=== PATIENT | female | born 1985 | race Caucasian/White ===

== ENCOUNTER 2018-06-17 18:36 | Inpatient (IN) | payer BC ==
[~2018-06-17] VITALS: Ht 165.1 cm; Wt 84.4 kg
--- OUTSIDE RECORDS SUMMARY | 2018-06-17 18:38 | XMS REPORT | Continuity of Care Document ---
Author Author [facility] Interface Address Unknown Phone Unavailable Problems Problem Status Onset Date Classification Date Reported Comments Source Exposure to streptococcal pharyngitis 12/06/2017 Diagnosis 12/06/2017 [facility] Body mass index 25-29 - overweight 12/06/2017 Diagnosis 12/06/2017 [facility] Influenza-like symptoms 12/06/2017 Diagnosis 12/06/2017 [facility] Acute pharyngitis 12/06/2017 Diagnosis 12/06/2017 [facility] Body Mass Index 25-29 - Overweight 12/05/2017 Problem 03/19/2018 [facility] Anxiety 12/05/2017 Problem 03/19/2018 [facility] Depressive Disorder 12/05/2017 Problem 03/19/2018 [facility] Acute Pharyngitis 12/05/2017 Problem 03/19/2018 [facility] Allergic Rhinitis 12/05/2017 Problem 03/19/2018 [facility] Influenza-like Symptoms 12/05/2017 Problem 03/19/2018 [facility] Exposure to Streptococcus 06/28/2016 Diagnosis 06/28/2016 [facility] Serous otitis media 05/30/2016 Diagnosis 06/28/2016 [facility] Cerebral thrombosis without mention of cerebral infarction Active Problem 08/15/2013 [facility] Medications Medication Details Route Status Patient Instructions Ordering Provider Order Date Source Amoxicillin 875 MG Oral Tablet amoxicillin 875 mg tablet Take 1 tablet every 12 hours by oral route for 10 days. Active [facility] Estradiol 1 MG Oral Tablet estradiol 1 mg tablet Active [facility] levocetirizine dihydrochloride 5 MG Oral Tablet levocetirizine 5 mg tablet Active [facility] montelukast 10 MG Oral Tablet montelukast 10 mg tablet Active [facility] cefdinir 300 MG Oral Capsule cefdinir 300 mg capsule Take 1 capsule every 12 hours by oral route as directed for 10 days. Active [facility] Lidocaine Hydrochloride 20 MG/ML Mucous Membrane Topical Solution Lidocaine Viscous 2 % mucosal solution Take 10 mL every 3 hours by oral route as needed. Active [facility] Ativan lorazepam Active [facility] Zoloft Zoloft Active [facility] Azithromycin 250 MG Oral Tablet azithromycin 250 mg tablet Active [facility] benzonatate 100 MG Oral Capsule benzonatate 100 mg capsule Active [facility] Cefuroxime 500 MG Oral Tablet cefuroxime axetil 500 mg tablet Active [facility] Ciprofloxacin 500 MG Oral Tablet ciprofloxacin 500 mg tablet Active [facility] Clindamycin 300 MG Oral Capsule clindamycin 300 mg capsule Active [facility] 24 HR Diclofenac Sodium 100 MG Extended Release Oral Tablet diclofenac ER 100 mg tablet,extended release 24 hr Active [facility] Fluticasone propionate 0.05 MG/ACTUAT Metered Dose Nasal [place] fluticasone 50 mcg/actuation nasal spray,suspension [place] 1 spray twice a day by intranasal route. Active [facility] Acetaminophen 325 MG / Hydrocodone Bitartrate 5 MG Oral Tablet hydrocodone 5 mg-acetaminophen 325 mg tablet Active [facility] Nortriptyline 10 MG Oral Capsule nortriptyline 10 mg capsule Active [facility] Omeprazole 40 MG Delayed Release Oral Capsule omeprazole 40 mg capsule,delayed release Active [facility] Prednisone 10 MG Oral Tablet prednisone 10 mg tablet Active [facility] Suprep Bowel Prep Kit 17.5 gram-3.13 gram-1.6 gram oral solution Suprep Bowel Prep Kit 17.5 gram-3.13 gram-1.6 gram oral solution Active [facility] Trazodone Hydrochloride 50 MG Oral Tablet trazodone 50 mg tablet Active [facility] Hydrocodone-Acetaminophen 1-2 tablet Orally Active 5-325 MG Orally every 4-6 hrs prn [facility] Allergies, Adverse Reactions, Alerts Substance Category Reaction Severity Reaction type Status Date Reported Comments Source Flagyl Myalgias (muscle pain) Allergy to substance 05/30/2016 [facility] Immunizations Immunization Date Given Site Status Last Updated Comments Source Tdap 02/07/2015 completed [facility] Results Order Name Results Value Reference Range Date Interpretation Comments Source Influenza A negative 12/06/2017 [facility] Influenza B negative 12/06/2017 [facility] RESULT negative 12/05/2017 [facility] SWAB LOCATION Left and Right tonsillar pillars 12/05/2017 [facility] RESULT negative 06/28/2016 [facility] SWAB LOCATION Left and Right tonsillar pillars 06/28/2016 [facility] RESULT negative 06/28/2016 [facility] SWAB LOCATION Left and Right tonsillar pillars 06/28/2016 [facility] Influenza A negative 06/28/2016 [facility] Influenza B negative 06/28/2016 [facility] RESULT negative 05/30/2016 [facility] SWAB LOCATION Left and Right tonsillar pillars 05/30/2016 [facility] Influenza A negative 05/30/2016 [facility] Influenza B negative 05/30/2016 [facility] Vital Signs Vital Sign Value Date Comments Source Diastolic (mm Hg) 60 12/05/2017 [facility] Height 66 12/05/2017 [facility] Systolic (mm Hg) 110 12/05/2017 [facility] Weight 165 12/05/2017 [facility] Diastolic (mm Hg) 76 06/28/2016 [facility] Height 66 06/28/2016 [facility] Systolic (mm Hg) 108 06/28/2016 [facility] Weight 170 06/28/2016 [facility] Diastolic (mm Hg) 80 05/30/2016 [facility] Height 66 05/30/2016 [facility] Systolic (mm Hg) 120 05/30/2016 [facility] Weight 175 05/30/2016 [facility] Encounters Location Location Details Encounter Type Encounter Number Reason For Visit Attending Provider ADM Date DC Date Status Source [facility] Lab results [id number] 06/28/2013 06/28/2013 [facility] Lab results [id number] 06/28/2013 06/28/2013 [facility] Lab results [id number] 06/28/2013 06/28/2013 [facility] Lab results [id number] 06/28/2013 06/28/2013 [facility] MRI scheduling [id number] 07/06/2013 07/06/2013 [facility] MRI scheduling [id number] 07/06/2013 07/06/2013 [facility] MRI scheduling [id number] 07/06/2013 07/06/2013 [facility] MRI scheduling [id number] 07/06/2013 07/06/2013 [facility] MRI/MRV [id number] 07/10/2013 07/10/2013 [facility] MRI/MRV [id number] 07/10/2013 07/10/2013 [facility] MRI/MRV [id number] 07/10/2013 07/10/2013 [facility] MRI/MRV [id number] 07/10/2013 07/10/2013 [facility] refill [id number] 07/11/2013 07/11/2013 [facility] refill [id number] 07/11/2013 07/11/2013 [facility] refill [id number] 07/11/2013 07/11/2013 [facility] refill [id number] 07/11/2013 07/11/2013 [facility] [place] - [facility] - [id number] Diaz, PAINTER AND BODY MECHANIC APPRENTICE-C: [address] [place] [address], Ph. [phone] [id number] Augustina Diaz 05/30/2016 [facility] [place] [facility] - [id number] Diaz PAINTER AND BODY MECHANIC APPRENTICE-C: [address] [facility], [place] [address], Ph. [phone] [id number] Augustina Diaz 05/30/2016 [facility] [place] [facility] - [id number] Alex Milian, DIGITAL PRODUCT SPECIALIST-C: [address] [place] [address], Ph. [id number] Alex Milian 06/28/2016 [facility] [place] [facility] - [id number] Fartun Gutierrez, DIGITAL PRODUCT SPECIALIST-C: [address] [place] [address], Ph. [id number] Fartun Gutierrez 12/05/2017 [facility] [place] [facility] - [id number] Terese Horton, DIGITAL PRODUCT SPECIALIST-C: [address] [place] [address], Ph. [id number] Terese Horton 03/19/2018 [facility] Procedures Procedure Code Date Perfomer Comments Source Hysterectomy [facility]
--- OUTSIDE RECORDS SUMMARY | 2018-06-17 18:38 | XMS REPORT | Encounter Summary ---
Author Organization Unknown Address [address] [place] [address] Phone [phone] Reason for Visit Medical Complaint Instructions 1. Exposure to Streptococcus rapid strep group A, throat amoxicillin 875 mg tablet Discussion Note: None recorded. Patient educational handouts: No information available. Plan of Care Patient Instructions take rx as directed. otc tylenol or ibuprofen prn. change toothbrush after 3 days. do not share or eat after one another. follow up pcp Reminders Provider Appointments None recorded. Lab Rapid Strep Group a, Throat 06/28/2016 [facility] Referral None recorded. Procedures None recorded. Surgeries None recorded. Imaging None recorded. Medications Name Start Date amoxicillin 875 mg tablet Take 1 tablet every 12 hours by oral route for 10 days. estradiol 1 mg tablet levocetirizine 5 mg tablet montelukast 10 mg tablet Medications Administered None recorded. Vitals Height Weight BMI Blood Pressure 5 ft 6 in 170 lbs 27.4 108/76 Lab Results Date Name Specimen Result Interpretation Description Value Range Status Address Rapid Strep Group a, Throat Result negative [facility]: [address] [place] [address] Swab Location Left and Right tonsillar pillars [facility]: [address] [place] [address] Rapid Strep Group a, Throat Result negative [facility]: [address] [place] [address] Swab Location Left and Right tonsillar pillars [facility]: [address] [place] [address] Rapid Flu (A+B) Influenza a negative [facility]: [address] [place] [address] Influenza B negative [facility]: [address] [place] [address] Allergies Code Code System Name Reaction Severity Onset 20270714 RxNorm Flagyl Myalgias (Muscle Pain) Problems None recorded. Procedures Date Name Performed by Hysterectomy Information not available Vaccine List None recorded. Social History Smoking Status Never Smoker Past Encounters 06/28/2016 Exposure to Streptococcus Alex Milian, JOHN-C: [address] [place] [address], Ph. 05/30/2016 Influenza-like Symptoms; Acute Pharyngitis; Serous Otitis Media Augustina Diaz MAT REPAIRER-C: [address] [facility], [place] [address], Ph. [phone] History of Present Illness Throat-Oral Complaint Reported By: Patient HPI: Location: throat. Quality: sore throat. Severity: mild, moderate. Duration: 3 days. Onset/Timing: gradual. Context: no sick contacts, no foreign travel, non-smoker. Modifying factors: OTC medication. Associated Symptoms: no fever, no headache, no body aches, no sputum production, no shortness of breath, no wheezing, no change in number of pillows needed to sleep at night, no sweats, no significant weight gain, no significant weight loss, no morning cough, no vomiting, no diarrhea, no rash, no nausea, sore throat Review of Systems:ROS as noted in the HPI Review of Systems Basic Reported By: Patient Physical Exam Adult Basic, Adult Female Complete Reported By: Patient Constitutional: General Appearance: healthy-appearing, well-nourished, well-developed. Level of Distress: NAD. Ambulation: ambulating normally Psychiatric: Mental Status: active and alert Kiu-Xqjt-Xcxrh-Throat: Lips, Teeth, and Gums: no mouth or lip ulcers. Oropharynx: moist mucous membranes, no erythema, no exudates, tonsils not enlarged Neck: Neck: trachea midline. Lymph Nodes: no cervical LAD Lungs: Respiratory effort: no dyspnea, no tachypnea, no use of accessory muscles, no intercostal retractions. Auscultation: breath sounds normal Cardiovascular: Heart Auscultation: RRR, no murmurs
--- OUTSIDE RECORDS SUMMARY | 2018-06-17 18:39 | XMS REPORT | Encounter Summary ---
Author Organization Unknown Address [address] [place] [address] Phone [phone] Care Team Providers Care Sizer Hand Name Role Phone Jun Ansari MD 3 [phone] Reason for Visit Medical Complaint Instructions 1. Acute pharyngitis sore throat: care instructions Lidocaine Viscous 2 % mucosal solution cefdinir 300 mg capsule rapid strep group A, throat culture, respiratory 2. Exposure to streptococcal pharyngitis 3. Influenza-like symptoms rapid flu (A+B) 4. Body mass index 25-29 - overweight body mass index: care instructions Discussion Note Pt is in NAD; Verbalizes understanding of all instructions with no questions at this time. Plan of Care Patient Instructions Take flonase over the counter as per package insert for congestion. [place] one spray in each nostril twice a day. Take a warm, steamy shower, blow your nose thereafter, and spray in each nostril. Tilt your head up for about 10 seconds and breath through your mouth. Do not sniff or snort the medication in or else the medication will go to your throat and not be absorbed appropriately. Gargle and spit viscous lidocaine as needed for sore throat as directed. Alternate with Ibuprofen and acetaminophen every 4-6 hrs as needed for pain/fever/headache. Proper hydration and rest. Take antibiotics with food and recommend start a probiotic to avoid GI discomfort. Do not share any utensils/cups, no kissing and change toothbrush after 24-48 hrs of antibiotic use. Take medications as prescribed. Follow up with your PCP within 2-3 days if symptoms worsen as discussed. Recommend follow a low sodium/fat/carb diet and exercise 30-45 mins/d 3-4 days a week once symptoms resolve. Reminders Provider Appointments None recorded. Lab Rapid Strep Group a, Throat 12/05/2017 [facility] Rapid Flu (A+B) 12/05/2017 [facility] Culture, Respiratory 12/05/2017 [facility] Referral None recorded. Procedures None recorded. Surgeries None recorded. Imaging None recorded. Medications Name Start Date cefdinir 300 mg capsule Take 1 capsule every 12 hours by oral route as directed for 10 days. Lidocaine Viscous 2 % mucosal solution Take 10 mL every 3 hours by oral route as needed. lorazepam montelukast 10 mg tablet Zoloft Medications Administered None recorded. Vitals Height Weight BMI Blood Pressure 5 ft 6 in 165 lbs 26.6 kg/m2 110/60 mm[Hg] Lab Results Date Name Specimen Result Interpretation Description Value Range Status Address 12/05/2017 Rapid Flu (A+B) Influenza a negative [facility]: [address] [place] [address] Influenza B negative [facility]: [address] [place] [address] Rapid Strep Group a, Throat Result negative [facility]: [address] [place] [address] Swab Location Left and Right tonsillar pillars [facility]: [address] [place] [address] Allergies Code Code System Name Reaction Severity Status Onset 20270714 RxNorm Flagyl Myalgias (Muscle Pain) Active Problems Name Status Onset Date Source Body Mass Index 25-29 - Overweight Active 12/05/2017 Anxiety Active 12/05/2017 Depressive Disorder Active 12/05/2017 Acute Pharyngitis Active 12/05/2017 Allergic Rhinitis Active 12/05/2017 Influenza-like Symptoms Active 12/05/2017 Procedures Date Name Performed by Hysterectomy Information not available Vaccine List Vaccine Type Tdap 02/07/2015 Social History Smoking Status Never Smoker Past Encounters 12/05/2017 Acute Pharyngitis; Exposure to Streptococcal Pharyngitis; Influenza-like Symptoms; Body Mass Index 25-29 - Overweight Fartun Gutierrez, CVICU RN-C: [address] [place] [address], Ph. History of Present Illness Throat-Oral Complaint Reported By: Patient HPI: Location: throat. Quality: sore throat. Severity: moderate, pain level 6/10. Duration: ; nasal congestion, sinus pressure, sore throat and OSMAN x 3 days and fever x 1 day. Onset/Timing: sudden. Context: no foreign travel, non-smoker, sick contact. Modifying factors: ; OTC cold and flu meds with no improvement. Associated Symptoms: no fever, no body aches, no sputum production, no shortness of breath, no wheezing, no change in number of pillows needed to sleep at night, no sweats, no significant weight gain, no significant weight loss, no morning cough, no vomiting, no diarrhea, no rash, no nausea, fever, headache, sore throat; nasal congestion and sinus pressure [id number]-Wzv Reported By: Patient HPI: Quality: cannot identify. Duration: constant; 32 YOF pt with c/o nasal congestion, sinus pressure, sore throat and OSMAN x 3 days and fever x 1 day. Severity: subjective temperature. Context: no tick/insect bites, no recent travel, no new medications, ill contacts. Associated Symptoms: no fever/chills, no muscle aches, no rash, no lethargy, headache, nasal passage blockage (stuffiness); sinus pressure, sore throat and fever. Modifying Factors nothing gives relief Review of Systems:ROS as noted in the HPI Review of Systems Basic Reported By: Patient Physical Exam Adult Basic, Adult Female Complete Reported By: Patient Constitutional: General Appearance: healthy-appearing, well-nourished, well-developed, overweight. Level of Distress: NAD. Ambulation: ambulating normally Psychiatric: Mental Status: active and alert. Orientation: to time, to place, to person Eyes: Lids and Conjunctivae: non-injected, no discharge, no pallor. Corneas: grossly intact. Lens: clear Hnf-Jvpp-Vgkpz-Throat: Ears: no lesions on external ear, no outer ear tenderness, EACs clear, TMs clear. Nose: no lesions on external nose, nares patent, no septal deviation, nasal passages clear, no sinus tenderness, nasal d ischarge--rhinorrhea, post nasal drip; B/L NTs pink and edematous. Lips, Teeth, and Gums: no mouth or lip ulcers, no bleeding gums, normal dentition. Oropharynx: moist mucous membranes, tonsils not enlarged, erythema, exudates Neck: Neck: supple. Lymph Nodes: no cervical LAD Lungs: Respiratory effort: no dyspnea, no tachypnea, no use of accessory muscles, no intercostal retractions. Auscultation: breath sounds normal Cardiovascular: Heart Auscultation: RRR, no murmurs Neurologic: Gait and Station: normal gait, normal station. Cranial Nerves: grossly intact
--- OUTSIDE RECORDS SUMMARY | 2018-06-17 18:39 | XMS REPORT ---
Author Author Jessica Gonzalez Organization [employer] Address Unknown Phone Unavailable Care Team Providers Care Trench Pipe Layer Helper Name Role Phone Jessica Gonzalez CP Unavailable Encounters Encounter Location Date refill [facility] July 11, 2013 Lab results [facility] June 28, 2013 MRI scheduling [facility] July 06, 2013 MRI/MRV [facility] July 10, 2013 Problems Problem Type Condition ICD-9 Code Onset Dates Condition Status Problem Cerebral thrombosis without mention of cerebral infarction 434.00 Active Social History Social History Element Qualifiers Date Reported Education history . Associates Degree yes June 26, 2013 Tobacco Use: . Are you a:: never smoker , Additional Findings: Tobacco Non-User: Aggressive non-smoker June 26, 2013 Marital Status: . June 26, 2013 Do you drink alcohol? . 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
--- OUTSIDE RECORDS SUMMARY | 2018-06-17 18:39 | XMS REPORT | Encounter Summary ---
Author Organization Unknown Address [address] [place] [address] Phone [phone] Care Team Providers Care [place] Cutting Machine Operator Name Role Phone Jun Ansari MD 3 [phone] Reason for Visit Medical Complaint Instructions None recorded. Discussion Note: None recorded. Patient educational handouts: No information available. Plan of Care Reminders Provider Appointments None recorded. Lab None recorded. Referral None recorded. Procedures None recorded. Surgeries None recorded. Imaging None recorded. Medications Name Start Date cefdinir 300 mg capsule Take 1 capsule every 12 hours by oral route as directed for 10 days. Lidocaine Viscous 2 % mucosal solution Take 10 mL every 3 hours by oral route as needed. lorazepam montelukast 10 mg tablet Zoloft Medications Administered None recorded. Vitals None recorded. Lab Results None recorded. Allergies Code Code System Name Reaction Severity [...] History Smoking Status Never Smoker Past Encounters 03/19/2018 Terese Horton, CUSTOMER CARE VOICE CONSULTANT-C: [address] [place] [address], Ph. History of Present Illness None recorded. Review of Systems Basic Reported By: Patient Physical Exam Adult Basic, Adult Female Complete Reported By: Patient
--- OUTSIDE RECORDS SUMMARY | 2018-06-17 18:39 | XMS REPORT ---
Author Author Jessica Gonzalez Organization [employer] Address Unknown Phone Unavailable Care Team Providers Care Chainstitch Hemmer Name Role Phone Jessica Gonzalez CP Unavailable Encounters Encounter Location Date refill [facility] July 11, 2013 Lab results [facility] June 28, 2013 MRI scheduling [facility] July 06, 2013 MRI/MRV [facility] July 10, 2013 Problems Problem [...]
--- OUTSIDE RECORDS SUMMARY | 2018-06-17 18:39 | XMS REPORT ---
Author Author Jessica Gonzalez Organization [employer] Address Unknown Phone Unavailable Care Team Providers Care Insulation Cupola Charger Name Role Phone Jessica Gonzalez Unavailable Encounters Encounter Location Date refill [facility] July 11, 2013 Lab results [facility] June 28, 2013 MRI scheduling [facility] July 06, 2013 MRI/MRV [facility] July 10, 2013 Problems Problem Type Condition ICD-9 Code Onset Dates Condition Status Assessment Cerebral thrombosis without mention of cerebral infarction 434.00 Active Problem Cerebral thrombosis without mention of cerebral infarction 434.00 Active Medications Medication Code System Code Instructions Start Date End Date Status Dosage Hydrocodone-Acetaminophen MEDISPAN [address]-46 5-325 MG Orally every 4-6 hrs prn Active 1-2 tablet Social History Social History Element Qualifiers Date [...]
--- OUTSIDE RECORDS SUMMARY | 2018-06-17 18:39 | XMS REPORT | Encounter Summary ---
Author Organization Unknown Address [address] [place] [id number] Phone [phone] Reason for Visit Medical Complaint Instructions 1. Influenza-like symptoms rapid flu (A+B) rapid strep group A, throat 2. Acute pharyngitis sore throat: care instructions Lidocaine Viscous 2 % mucosal solution 3. Serous otitis media fluticasone 50 mcg/actuation nasal spray,suspension amoxicillin 875 mg tablet ear infection (otitis media): care instructions Discussion Note Pt in NAD, understands all information provided Plan of Care Patient Instructions Pt will take abx as prescribed and keep ears dry avoiding Q-tip use. Please seek care (PCP, Urgent Care, ER) or return to [facility] if symptoms get worse or do not resolve in 1 week. Reminders Provider Appointments None recorded. Lab Rapid Flu (A+B) 05/30/2016 [facility] Rapid Strep Group a, Throat 05/30/2016 [facility] Referral None recorded. Procedures None recorded. Surgeries None recorded. Imaging None recorded. Medications Name Start Date amoxicillin 875 mg tablet Take 1 tablet every 12 hours by oral route for 5 days. azithromycin 250 mg tablet benzonatate 100 mg capsule cefuroxime axetil 500 mg tablet ciprofloxacin 500 mg tablet clindamycin 300 mg capsule diclofenac ER 100 mg tablet,extended release 24 hr estradiol 1 mg tablet fluticasone 50 mcg/actuation nasal spray,suspension [place] 1 spray twice a day by intranasal route. hydrocodone 5 mg-acetaminophen 325 mg tablet levocetirizine 5 mg tablet Lidocaine Viscous 2 % mucosal solution Take 5 mL every 3 hours by oral route for 2 days. montelukast 10 mg tablet nortriptyline 10 mg capsule omeprazole 40 mg capsule,delayed release prednisone 10 mg tablet Suprep Bowel Prep Kit 17.5 gram-3.13 gram-1.6 gram oral solution trazodone 50 mg tablet Medications Administered None recorded. Vitals Height Weight BMI Blood Pressure 5 ft 6 in 175 lbs 28.2 120/80 Lab Results Date Name Specimen Result Interpretation Description Value Range Status Address Rapid Strep Group a, Throat Result negative [facility]: [address] [place] [address] Swab Location Left and Right tonsillar pillars [facility]: [address] [place] [address] Rapid Flu (A+B) Influenza a negative [facility]: [facility] Influenza B negative [facility]: [facility] Allergies Code Code System Name Reaction Severity Onset [id number] RxNorm Flagyl Problems None recorded. Procedures Date Name Performed by Hysterectomy Information not available Vaccine List None recorded. Social History None recorded. Past Encounters 05/30/2016 Influenza-like Symptoms; Acute Pharyngitis; Serous Otitis Media Augustina Diaz, [employer]MENT[employer] TE[employer]ER-C: [address] [facility], [place] [address], Ph. [phone] History of Present Illness Jccbeld-Sbger-Dtg Reported By: Patient HPI: Quality: cannot identify. Duration: 1-2 days. Severity: subjective temperature. Context: no tick/insect bites, no recent travel, no new medications, ill contacts. Associated Symptoms: no muscle aches, no rash, no lethargy, fever/chills, headache, tired (fatigue), nasal passage blockage (stuffiness) Ear Complaint Reported By: Patient HPI: Location: bilateral. Quality: ears feel full/plugged, muffled. Severity: intermittent. Duration: intermittent. Onset/Timing: still present. Context: no sick contacts, no exposure to second hand smoke, no head trauma, not grinding teeth, no recent air travel, swimming/water in ear. Modifying factors: does not hurt to lie on, or pull on ear, hurts to chew. Associated Symptoms: popping noise in the ears, ringing in the ears, earache Review of Systems:ROS as noted in the HPI Review of Systems Basic Reported By: Patient Physical Exam Adult Basic, Adult Female Complete Reported By: Patient Constitutional: General Appearance: healthy-appearing, well-nourished, well-developed. Level of Distress: NAD. Ambulation: ambulating normally Psychiatric: Mental Status: active and alert. Orientation: to time, to place, to person Dje-Skeh-Vrxvx-Throat: Ears: no lesions on external ear, no outer ear tenderness, EACs clear, TM erythematous, TM bulging, middle ear fluid. Hearing: no hearing loss. Nose: no lesions on external nose, nares patent, no septal deviation, nasal passages clear, no sinus tenderness, post nasal drip. Oropharynx: erythema Lungs: Respiratory effort: no dyspnea, no tachypnea, no use of accessory muscles, no intercostal retractions. Auscultation: breath sounds normal Cardiovascular: Heart Auscultation: RRR, no murmurs
--- OUTSIDE RECORDS SUMMARY | 2018-06-17 18:39 | XMS REPORT ---
Author Author Jessica Gonzalez Organization [employer] Address Unknown Phone Unavailable Care Team Providers Care System Validation Engineer Name Role Phone Jessica Gonzalez CP Unavailable Encounters Encounter Location Date refill [facility] July 11, 2013 Lab results [facility] June 28, 2013 MRI scheduling [facility] July 06, 2013 MRI/MRV [facility] July 10, 2013 Problems Problem [...]
[2018-06-17 19:21] LABS: BILIRUBIN,URINE NEGATIVE (NEGATIVE); CLARITY,URINE CLEAR (CLEAR); COLOR,URINE YELLOW (YELLOW); KETONES,URINE NEGATIVE (NEGATIVE); LEUKOCYTE ESTERASE ,URINE NEGATIVE (NEGATIVE); NITRITE,URINE NEGATIVE (NEGATIVE); PROTEIN,URINE DIPSTICK NEGATIVE (NEGATIVE); URINE UROBILINOGEN 0.2 mg/dL (0.2 - 1)
[2018-06-17 19:26] LABS: BACTERIA,URINE FEW /HPF; EPITHELIAL CELLS,URINE MODERATE /LPF; RBC,URINE 0-5 /HPF (0-5); WBC,URINE (MAN) 0-5 /HPF (0-5)
[2018-06-17 20:23] LABS: BASOPHILS % 0.4 % (0.0-1.0); EOSINOPHILS % 0.7 % (0.0-6.0); HEMATOCRIT 34.6 % (34.2-44.1); HEMOGLOBIN 12.1 g/dL (12.0-16.0); LYMPHOCYTES # (AUTO) 1.4 (1.0-3.2); LYMPHOCYTES % 25.6 % (18.0-39.1); MEAN CORPUSCULAR HEMOGLOBIN 25.7 pg (28-32); MEAN CORPUSCULAR VOLUME 73.5 fL (81-99); MONOCYTES # (AUTO) 0.3 (0.2-0.8); MONOCYTES % 5.9 % (4.4-11.3); NEUTROPHILS # (AUTO) 3.6 (2.1-6.9); PLATELET COUNT 177 x10e3/uL (140-360); RED BLOOD COUNT 4.71 x10e6/uL (3.6-5.1); RED CELL DISTRIBUTION WIDTH 12.1 % (11.7-14.4)
[2018-06-17 20:41] LABS: INR 0.83; PROTHROMBIN TIME 11.9 seconds (11.9-14.5)
[2018-06-17 20:42] LABS: PARTIAL THROMBOPLASTIN TIME 29.2 seconds (23.8-35.5)
[2018-06-17 20:43] LABS: ALANINE AMINOTRANSFERASE 30 IU/L (0-55); ALBUMIN 4.1 g/dL (3.5-5.0); ALBUMIN/GLOBULIN RATIO 1.5 (0.8-2.0); ALKALINE PHOSPHATASE 82 IU/L (40-150); ANION GAP 16.5 mmol/L (8-16); BLOOD UREA NITROGEN 11 mg/dL (7-26); BUN/CREATININE RATIO 14 (6-25); CALCIUM 9.2 mg/dL (8.4-10.2); CARBON DIOXIDE 19 mmol/L (22-29); CHLORIDE 91 mmol/L (98-107); CREATININE, SERUM 0.81 mg/dL (0.57-1.11); EST GLOMERULAR FILTRATION RATE > 60 ML/MIN (60-); GLUCOSE 100 mg/dL (74-118); POTASSIUM 3.5 mmol/L (3.5-5.1); SODIUM 123 mmol/L (136-145)
--- NOTE | 2018-06-17 20:43 | Diagnostic Imaging Report ---
CT BRAIN WO HISTORY: Dizziness, headache, seizure COMPARISON: None. TECHNIQUE: Noncontrast axial scans were obtained from skull base to the vertex. Coronal and sagittal reconstructions obtained from the axial data. One or more of the following dose reduction techniques were used: Automated exposure control, adjustment of the mA and/or kV according to patient size, and/or utilization of iterative reconstruction technique. DISCUSSION: Scalp/Skull: Unremarkable. Brain sulci: Appropriate for patient's age. Ventricles: Slight prominence of the right lateral ventricle is within normal variation. Otherwise, unremarkable. Extra-axial spaces: No masses or fluid collections. Parenchyma: No abnormal densities. No mass, hemorrhage, or large vascular territory acute infarct. Dural sinuses: No abnormal densities. Sellar/Suprasellar region: Intact. Skull base: Intact. Incidental findings: None. IMPRESSION: No intracranial abnormalities. Signed by: Dr. Sonido Luna M.D. on 06/17/2018 8:39 PM
[2018-06-17] MEDS ORDERED: LORAZEPAM INJ 2 MG/ML VIAL ONE (20:54)
[2018-06-17 20:59] LABS: CREATINE KINASE 99 IU/L (29-168); MAGNESIUM 1.5 MG/DL (1.3-2.1)
[2018-06-17] MEDS ORDERED: LORAZEPAM INJ 2 MG/ML VIAL IV ONE ×4 (21:00→23:45)
[2018-06-17 21:07] LABS: AMPHETAMINES SCREEN,URINE NEGATIVE (NEGATIVE); BENZODIAZEPINES SCREEN,URINE NEGATIVE (NEGATIVE); PHENCYCLIDINE SCREEN,URINE NEGATIVE (NEGATIVE)
[2018-06-17 21:18] LABS: ACETAMINOPHEN 8 ug/mL (10-30)
[2018-06-17 21:23] LABS: SALICYLATE < 5.0 mg/dL (0-30)
[2018-06-17] MEDS ORDERED: SODIUM CHLORIDE 0.9% 1000ML 1,000 ML ONE (21:25)
[2018-06-17] MEDS ORDERED: SODIUM CHLORIDE 0.9% 1000ML 1,000 ML IV SCH (21:30)
--- NOTE | 2018-06-17 21:42 | Diagnostic Imaging Report ---
EXAMINATION: CHEST SINGLE (PORTABLE) INDICATION: ^seizure ^[id number] ^2119 COMPARISON: None FINDINGS: AP view TUBES and LINES: None. LUNGS: Limited by low lung volumes and body habitus. There is no evidence of pneumonia or pulmonary edema. PLEURA: No significant pleural effusion or pneumothorax. HEART AND MEDIASTINUM: The cardiomediastinal silhouette is unremarkable. BONES AND SOFT TISSUES: No acute osseous lesion. Soft tissues are unremarkable. UPPER ABDOMEN: No free air under the diaphragm. IMPRESSION: Limited as above. No definite thoracic abnormality. Signed by: Dr. Baljit Rdz MD on 06/17/2018 9:39 PM
[2018-06-17] MEDS ORDERED: LEVETIRACETAM 500MG/5ML VIAL 1,000 MG in SODIUM CHLORIDE 0.9% 100 ML 100 ML IV STA (22:26)
[2018-06-17] MEDS ORDERED: VANCOMYCIN 1GM/NS 250 ML 250 ML IV STA (23:05)
[2018-06-17] MEDS ORDERED: CEFTRIAXONE SOD 2 GM/NS 100 ML 100 ML IV ONE (23:15)
[2018-06-17] MEDS ORDERED: ACYCLOVIR SODIUM 800 MG in SODIUM CHLORIDE 0.9% 250ML 250 ML IV SCH (23:15)
[2018-06-17] MEDS ORDERED: LEVETIRACETAM 500 MG/5 ML VIAL IV ONE (23:17)
[2018-06-17] MEDS ORDERED: SODIUM CHLORIDE 0.9% 100 ML ONE (23:18)
[2018-06-17] MEDS ORDERED: ZIPRASIDONE 20 MG VIAL IM STA (23:40)
[2018-06-17] MEDS ORDERED: LEVETIRACETAM 500MG/5ML VIAL 500 MG in SODIUM CHLORIDE 0.9% 100 ML 100 ML IV ONE (23:45)
--- OUTSIDE RECORDS SUMMARY | 2018-06-17 23:47 | XMS REPORT | Clinical Summary ---
Author Author [facility] Organization [employer] Address Unknown Phone Unavailable Care Team Providers Care Corporate Scheduler Name Role Phone Jun Ansari MD PCP Allergies Comments Active Allergy Reactions Severity Noted Date Numbness in arms and legs Metronidazole Other (See 03/17/2017 Comments) Morphine Rash Low 03/17/2017 Medications End Date Status Medication Sig Dispensed Refills Start Date Active sertraline (ZOLOFT) 100 Take 200 mg 0 MG tablet by mouth daily. Active LORAZepam (ATIVAN) 0.5 MG Take 0.5 mg 0 tablet by mouth 2 (two) times a day. Active doxylamine (UNISON) 25 mg Take 25 mg by 0 tablet mouth nightly as needed for sleep. Active fluticasone (FLONASE) 50 2 sprays by 0 mcg/actuation nasal spray Each Nare route daily. Active Problems Problem Noted Date Enteritis 03/17/2017 Depression 03/17/2017 Anxiety 03/17/2017 Family History Medical History Relation Name Comments Cancer Father Hypertension Mother Relation Name Status Comments Father OF COLON CA, Mother Social History Date Tobacco Use Types Packs/Day Years Used Former Smoker Cigarettes 1 Smokeless Tobacco: Never Used Comments: 1PK EVERY 2 DAYS.QUIT 10 YRS AGO.SMOKED 1.5 YRS. Alcohol Use Drinks/Week oz/Week Comments Yes occasionally Sex Assigned at Date Recorded Not on file Industry Job Start Date Occupation Not on file Not on file Not on file Travel End Travel History Travel Start No recent travel history available. Last Filed Vital Signs Not on file Plan of Treatment Health Maintenance Due Date Last Done Comments CERVICAL CANCER SCREENING 2008 INFLUENZA VACCINE 09/07/2018 Results Not on fileafter 06/16/2017 Insurance Payer Benefit Subscriber ID Type Phone Address Plan / Group BCBS ANTHEM xxxxxxxxxxxx PPO BLUE CROSS Advance Directives Patient has advance care planning documents on file. For more information, bernardino rosales contact: Obed Hester [address] [place] [address]
[2018-06-17] MEDS ORDERED: ZIPRASIDONE 20 MG VIAL IM ONE (23:48)
--- OUTSIDE RECORDS SUMMARY | 2018-06-17 23:48 | XMS REPORT ---
Author [facility] Address Unknown Phone Unavailable Care Team Providers Care Director Process Name Role Phone Pedro BOURNE Unavailable Unavailable Payers Payer Name Policy Type Policy Number Effective Date Expiration Date Problems This patient has no known problems. Allergies, Adverse Reactions, Alerts Allergy Name Allergy Type Status Severity Reaction(s) Onset Date Inactive Date Treating Clinician Comments morphine DA Active MO 2018-03-30 00:00:00 metronidazole DA Active MO 2018-03-30 00:00:00 morphine DA Active MO 2014-12-16 00:00:00 metronidazole DA Active MO 2014-12-16 00:00:00 Medications This patient has no known medications. Results Test Description Test Time Test Comments Text Results Atomic Results Result Comments CHEST SINGLE (PORTABLE) 2018-06-17 21:38:00 [place] [address] Patient Name: ESPERANZA VAUGHAN MR #: [id number] : 1985 Age/Sex: 33/F Req #: [id number] Adm Physician: Ordered by: FRANCOIS BOURNE MD Report #: [id number] Location: ER Room/Bed: Procedure: [id number] DX/CHEST SINGLE (PORTABLE) Exam Date: 06/17/18 Exam Time: 2119 REPORT STATUS: Signed EXAMINATION: CHEST SINGLE (PORTABLE) INDIC ATION: seizure [id number] COMPARISON: None FINDINGS: AP view TUBES and LINES: None. LUNGS: Limited by low lung volumes and body habitus. There is no evidence of pneumonia or pulmonary edema. PLEURA: No significant pleural effusion or pneumothorax. HEART AND MEDIASTINUM: The cardiomediastinal silhouette is unremarkable. BONES AND SOFT TISSUES: No acute osseous lesion. Soft tissues are unremarkable. UPPER ABDOMEN: No free air under the diaphragm. IMPRESSION: Limited as above. No definite thoracic abnormality. Signed by: Dr. Baljit Bae MD on 06/17/2018 9:39 PM Dictated By: BALJIT BAE MD 38 Transcribed By: MICAELA on 06/17/182138 COPY TO: FRANCOIS BOURNE MD CT BRAIN WO 2018-06-17 20:36:00 [place] [address] Patient Name: ESPERANZA VAUGHAN MR #: [id number] : 1985 Age/Sex: 33/F Req #: [id number] Adm Physician: Ordered by: FRANCOIS BOURNE MD Report #: [id number] Location: ER Room/Bed: Procedure: CT/CT BRAIN WO Exam Date: Exam Time: REPORT STATUS: Signed CT BRAIN WO HISTORY: Dizziness, headache, seizure COMPARISON: None. TECHNIQUE: Noncontrast axial scans were obtained from skull base to the vertex. Coronal and sagittal reconstructions obtained from the axial data. One or more of the following dose reduction techniques were used: Automated exposure control, adjustment of the mA and/or kV according to patient size, and/or utilization of iterative reconstruction technique. DISCUSSION: Scalp/Skull: Unremarkable. Brain sulci: Appropriate for patient's age. Ventricles: Slight prominence of the right lateral ventricle is within normal variation. Otherwise, unremarkable. Extra-axial spaces: No masses or fluid collections. Parenchyma: No abnormal densities. No mass, hemorrhage, or large vascular territory acute infarct. Dural sinuses: No abnormal densities. Sellar/Suprasellar region: Intact. Skull base: Intact. Incidental findings: None. IMPRESSION: No intracranial abnormalities. Signed by: Dr. Sonido Luna M.D. on 06/17/2018 8:39 PM Dictated By: SONIDO LUNA MD 38 Transcribed By: MICAELA on 06/17/182038 COPY TO: FRANCOIS BOURNE MD BASIC METABOLIC PANEL 2018-03-30 21:02:00 SODIUM (test code=NA) 139 mmol/L 136-145 POTASSIUM (test code=K) 4.4 mmol/L 3.5-5.1 CHLORIDE (test code=CL) 105.0 mmol/L 98-107 CARBON DIOXIDE (test code=CO2) 24.0 mmol/L 21-32 ANION GAP (test code=GAP) 14.4 10-20 GLUCOSE (test code=GLU) 82 mg/dL 74-106 BLOOD UREA NITROGEN (test code=BUN) 10 mg/dL 7-18 GLOMERULAR FILTRATION RATE (test code=GFR) > 60 mL/min >=60 Estimated GFR by using Modified MDRD formula.Chronic kidney disease is defined as either kidney damageor GFR <60 mL/min/1.73 m2 for >3 months. CREATININE (test code=CREAT) 0.80 mg/dL 0.55-1.02 Note change in reference range due to change in reagent. BUN/CREATININE RATIO (test code=BUN/CREA) 11.9 10-20 CALCIUM (test code=CA) 9.1 mg/dL 8.5-10.1 [id number] 21:02:00* Test Item Value Reference Range Comments TROPONIN-I (test code=TROPI) <0.015 ng/mL 0-0.045 BASIC METABOLIC [id number] 20:55:00* Test Item Value Reference Range Comments SODIUM (test code=NA) 139 mmol/L 136-145 POTASSIUM (test code=K) 4.4 mmol/L 3.5-5.1 CHLORIDE (test code=CL) 105.0 mmol/L 98-107 CARBON DIOXIDE (test code=CO2) mmol/L 21-32 ANION GAP (test code=GAP) 10-20 GLUCOSE (test code=GLU) mg/dL 74-106 BLOOD UREA NITROGEN (test code=BUN) mg/dL 7-18 GLOMERULAR FILTRATION RATE (test code=GFR) mL/min >=60 CREATININE (test code=CREAT) mg/dL 0.55-1.02 BUN/CREATININE RATIO (test code=BUN/CREA) 10-20 CALCIUM (test code=CA) 9.1 mg/dL 8.5-10.1 [id number] 20:55:00* Test Item Value Reference Range Comments TROPONIN-I (test code=TROPI) ng/mL 0-0.045 URINALYSIS [id number] 20:11:00* Test Item Value Reference Range Comments UA COLOR (test code=COLU) COLORLESS YELLOW UA APPEARANCE (test code=APPU) CLEAR CLEAR UA GLUCOSE DIPSTICK (test code=DGLUU) NEGATIVE mg/dL NEGATIVE UA BILIRUBIN DIPSTICK (test code=BILU) NEGATIVE mg/dL NEGATIVE UA KETONE DIPSTICK (test code=KETU) Negative mg/dL NEGATIVE UA SPECIFIC GRAVITY (test code=SGU) 1.002 1.001-1.035 UA BLOOD DIPSTICK (test code=KUSHAL) Negative NEGATIVE UA PH DIPSTICK (test code=MONIE) 6.0 5.0-8.0 UA PROTEIN DIPSTICK (test code=PROU) Negative mg/dL NEGATIVE UA UROBILINIOGEN DIPSTICK (test code=URO) NEGATIVE mg/dL NEGATIVE UA NITRITE DIPSTICK (test code=ALBAN) NEGATIVE NEGATIVE UA LEUKOCYTE ESTERASE W REFLEX (test code=LEUUR) NEGATIVE NEGATIVE UA WBC (test code=WBCU) 0-5 #/HPF 0-5 UA RBC (test code=RBCU) 0-3 #/HPF 0-5 UA EPITHELIAL CELLS (test code=EPIU) FEW per HPF FEW Urine Source? Clean CatchHCG SERUM [id number] 19:21:00* Test Item Value Reference Range Comments HCG SERUM QUAL (test code=HCGQL) NEGATIVE NEGATIVE This HCGQL test is NOT applicable for MALE patients.Check with nurse about probable order error.If Tumor Marker Test needed, nurse should order test "HCGTU"(Test #[id number]) HEPATIC FUNCTION [id number] 19:11:00* Test Item Value Reference Range Comments TOTAL PROTEIN (test code=PROT) 7.2 gram/dL 6.4-8.2 ALBUMIN (test code=ALB) 3.8 g/dL 3.4-5.0 GLOBULIN (test code=GLOB) 3.4 gram/dL 2.7-4.2 ALBUMIN/GLOBULIN RATIO (test code=A/G) 1.1 0.75-1.50 BILIRUBIN TOTAL (test code=BILT) 0.40 mg/dL 0.0-1.0 BILIRUBIN DIRECT (test code=BILD) 0.11 mg/dL 0.0-0.20 SGOT/AST (test code=AST) 39 IUnit/L 15-37 SGPT/ALT (test code=ALT) 44 IUnit/L 12-78 ALKALINE PHOSPHATASE TOTAL (test code=ALKP) 100 IUnit/L 45-117 Note change in reference range due to change in reagent. [id number] 19:11:00* Test Item Value Reference Range Comments LIPASE (test code=LIP) 600 U/L 73.0-393.0 [id number] 19:00:00* Test Item Value Reference Range Comments D-DIMER (test code=DDIMER) 61.00 ng/mLFEU 0-500 Clinical Cut-off value for D- Dimer is 500 ng/mL FEU. Comment: The [employer] D-Dimer assay is intended for use asan aid in the diagnosis of venous thromboembolism (VTE)[deep vein thrombosis (DVT) or pulmonary embolism (PE)].The measurement of D-Dimer should not be used as an aid inthe diagnosis of VTE, in patient with: -Therapeutic dose anticoagulant therapy for >24 hours -Fibrinolytic therapy within previous 7 days -Trauma or surgery within previous 4 weeks -Disseminated malignancies - Aortic aneurysm -Sepsis, severe infections, pneumonia, severe skin infections -Liver cirrhosis - CBC W/AUTO [id number] 18:52:00* Test Item Value Reference Range Comments WHITE BLOOD CELL (test code=WBC) 5.2 K/mm3 4.5-12.5 RED BLOOD CELL (test code=RBC) 4.85 mill/mm3 3.7-5.2 HEMOGLOBIN (test code=HGB) 12.6 gram/dL 11.5-15.5 HEMATOCRIT (test code=HCT) 40.2 % 36.0-46.0 MEAN CELL VOLUME (test code=MCV) 82.9 fL 80-98 MEAN CELL HGB (test code=MCH) 26.0 picogram 27.0-33.0 MEAN CELL HGB CONCETRATION (test code=MCHC) 31.3 gram/dL 33.0-36.0 RED CELL DISTRIBUTION WIDTH (test code=RDW) 13.9 % 11.6-16.2 RED CELL DISTRIBUTION WIDTH SD (test code=RDW-SD) 41.8 fL 37.0-51.0 PLATELET COUNT (test code=PLT) 186 K/mm3 150-450 MEAN PLATELET VOLUME (test code=MPV) 10.0 fL 6.7-11.0 NEUTROPHIL % (test code=NT%) 54.5 % 39.0-69.0 IMMATURE GRANULOCYTE % (test code=IG%) 0.4 % 0.0-5.0 LYMPHOCYTE % (test code=LY%) 38.0 % 25.0-55.0 MONOCYTE % (test code=MO%) 4.4 % 0.0-10.0 EOSINOPHIL % (test code=EO%) 2.1 % 0.0-5.0 BASOPHIL % (test code=BA%) 0.6 % 0.0-1.0 NUCLEATED RBC % (test code=NRBC%) 0.0 % 0-0 NEUTROPHIL # (test code=NT#) 2.85 K/mm3 1.8-7.7 IMMATURE GRANULOCYTE # (test code=IG#) 0.02 x10 3/uL 0-0.03 LYMPHOCYTE # (test code=LY#) 1.99 K/mm3 1.0-5.0 MONOCYTE # (test code=MO#) 0.23 K/mm3 0-0.8 EOSINOPHIL # (test code=EO#) 0.11 K/mm3 0.0-0.5 BASOPHIL # (test code=BA#) 0.03 K/mm3 0.0-0.2 NUCLEATED RBC # (test code=NRBC#) 0.00 K/mm3 0.0-0.1 MANUAL DIFF REQUIRED (test code=MDIFF) NO CBC W/AUTO [id number] 18:50:00* Test Item Value Reference Range Comments WHITE BLOOD CELL (test code=WBC) K/mm3 4.5-12.5 RED BLOOD CELL (test code=RBC) mill/mm3 3.7-5.2 HEMOGLOBIN (test code=HGB) 12.6 gram/dL 11.5-15.5 HEMATOCRIT (test code=HCT) 40.2 % 36.0-46.0 MEAN CELL VOLUME (test code=MCV) fL 80-98 MEAN CELL HGB (test code=MCH) picogram 27.0-33.0 MEAN CELL HGB CONCETRATION (test code=MCHC) gram/dL 33.0-36.0 RED CELL DISTRIBUTION WIDTH (test code=RDW) % 11.6-16.2 RED CELL DISTRIBUTION WIDTH SD (test code=RDW-SD) fL 37.0-51.0 PLATELET COUNT (test code=PLT) K/mm3 150-450 MEAN PLATELET VOLUME (test code=MPV) fL 6.7-11.0 NEUTROPHIL % (test code=NT%) % 39.0-69.0 IMMATURE GRANULOCYTE % (test code=IG%) % 0.0-5.0 LYMPHOCYTE % (test code=LY%) % 25.0-55.0 MONOCYTE % (test code=MO%) % 0.0-10.0 EOSINOPHIL % (test code=EO%) % 0.0-5.0 BASOPHIL % (test code=BA%) % 0.0-1.0 NEUTROPHIL # (test code=NT#) K/mm3 1.8-7.7 LYMPHOCYTE # (test code=LY#) K/mm3 1.0-5.0 MONOCYTE # (test code=MO#) K/mm3 0-0.8 EOSINOPHIL # (test code=EO#) K/mm3 0.0-0.5 BASOPHIL # (test code=BA#) K/mm3 0.0-0.2 - CT HEAD/BRAIN W/O [id number] 18:41:00 Name: ESPERANZA VAUGHAN [facility] : 1985 Age/S: 33 / F [address] Unit #: [id number] Loc: [place] [address] Phys: Abel Awad MD Acct: [id number] Dis Date: Status: PRE ER PHONE #: [phone] Exam Date: 03/30/2018 1828 FAX #: [phone] Reason: headache EXAMS: CPT CODE: [id number] CT HEAD/BRAIN W/O CONT [id number] REASON FOR EXAM: headache EXAM ORDER DATE: 03/30/2018 6:02 PM Ordering Katelin: Abel Awad MD PROCEDURE: - CT HEAD/BRAIN W/O CONT COMPARISON: FINDINGS: CT images of the brain were obtained without IV contrast. Dose reduction techniques were applied. The brain parenchyma is within normal limits. The smith-white matter delineation is unremarkable. The ventricles, cisterns, and sulci are unremarkable. There is no evidence of hemorrhage, mass, mass effect. There is no evidence of acute or old infarct. The calvarium is intact. IMPRESSION: Unremarkable brain. at 1841 Reported and signed by: Herve Preciado M.D. CC: Abel Awad MD Technologist:Jacklyn Parks RT(R) CTDI: DLP: Trnscb Date/Time: 03/30/2018 (1840) Cheryl Orig Print D/T: S: 03/30/2018 (1843) CTDI: DLP: PAGE 1 Signed Report - XR CHEST 1 [id number] 18:24:00 FAX: Abel Awad MD [phone] [place]: St: PRE Name: ESPERANZA BLANCO [facility] : [birth year] Age/S: 33/F [address] [facility] Unit #: [id number] Loc: [place] [address] Phys: Abel Awad MD Acct: [id number] Dis Date: Status: PRE ER PHONE #: [phone] Exam Date: 03/30/20181821 FAX #: [phone] Reason: shortness of breath EXAMS: CPT CODE: [id number] XR CHEST 1 V [id number] REASON FOR EXAM: shortness of breath EXAM ORDER DATE: 03/30/2018 6:01 PM Ordering M.Leroy: Abel Awad MD PROCEDURE: - XR CHEST 1 V COMPARISON: FINDINGS: Portable AP frontal view of the chest obt ained at 6:18 PM shows clear lungs without evidence of consolidation. Ther e is no evidence of effusion. The heart size is within normal limits. Pulmonary vasculatures are unremarkable. IMPRESSION: No active disease. at 1824 Reported and signed by: Herve Preciado M.D. CC: Abel Awad MD Technologist: TY FLANAGAN Trnscrd Date/Time/By: (1823) : By: JudyVTL Orig Print D/T: S: 03/30/2018 (1826) PAGE 1 Signed Report
[2018-06-18] VITALS (17 sets, daily range): BP systolic 82–138; BP diastolic 43–81
[2018-06-18 00:11] LABS: AMPHETAMINES SCREEN,URINE NEGATIVE (NEGATIVE); BENZODIAZEPINES SCREEN,URINE NEGATIVE (NEGATIVE); PHENCYCLIDINE SCREEN,URINE NEGATIVE (NEGATIVE)
[2018-06-18] MEDS ORDERED: LEVETIRACETAM 500 MG/5 ML VIAL IV ONE (00:55)
[2018-06-18] MEDS ORDERED: ACYCLOVIR SODIUM INJ 2 VIAL IV ONE (00:56)
[2018-06-18] MEDS ORDERED: CEFTRIAXONE SOD 2 GM VIAL ONE (00:57)
[2018-06-18] MEDS ORDERED: SODIUM CHLORIDE 0.9% 250ML 250 ML ONE (01:18)
[2018-06-18] MEDS ORDERED: SODIUM CHLORIDE 0.9% 200 ML ONE (01:21)
[2018-06-18] MEDS: LORAZEPAM INJ 2 MG/ML VIAL IV PRN ×6 (04:21→21:25)
[2018-06-18 05:11] LABS: BASOPHILS % 0.1 % (0.0-1.0); EOSINOPHILS # (AUTO) 0.1 (0.0-0.4); EOSINOPHILS % 2.1 % (0.0-6.0); HEMATOCRIT 33.3 % (34.2-44.1); LYMPHOCYTES # (AUTO) 0.7 (1.0-3.2); LYMPHOCYTES % 10.5 % (18.0-39.1); MEAN CORPUSCULAR HEMOGLOBIN 24.4 pg (28-32); MEAN CORPUSCULAR HGB CONC 32.4 g/dL (31-35); MEAN CORPUSCULAR VOLUME 75.2 fL (81-99); MONOCYTES # (AUTO) 0.3 (0.2-0.8); MONOCYTES % 4.7 % (4.4-11.3); NEUTROPHILS # (AUTO) 5.6 (2.1-6.9); NEUTROPHILS % 82.3 % (38.7-80.0); PLATELET COUNT 169 x10e3/uL (140-360); RED BLOOD COUNT 4.43 x10e6/uL (3.6-5.1); RED CELL DISTRIBUTION WIDTH 12.1 % (11.7-14.4)
[2018-06-18 05:21] LABS: HEMOGLOBIN 10.8 g/dL (12.0-16.0)
[2018-06-18 05:36] LABS: ALANINE AMINOTRANSFERASE 26 IU/L (0-55); ALBUMIN 3.5 g/dL (3.5-5.0); ALBUMIN/GLOBULIN RATIO 1.4 (0.8-2.0); ALKALINE PHOSPHATASE 79 IU/L (40-150); ANION GAP 11.3 mmol/L (8-16); BLOOD UREA NITROGEN 5 mg/dL (7-26); BUN/CREATININE RATIO 7 (6-25); CALCIUM 8.7 mg/dL (8.4-10.2); CARBON DIOXIDE 24 mmol/L (22-29); CHLORIDE 100 mmol/L (98-107); CREATININE, SERUM 0.74 mg/dL (0.57-1.11); EST GLOMERULAR FILTRATION RATE > 60 ML/MIN (60-); GLUCOSE 110 mg/dL (74-118); POTASSIUM 4.3 mmol/L (3.5-5.1); SODIUM 131 mmol/L (136-145)
[2018-06-18] MEDS ORDERED: VANCOMYCIN 1GM/NS 250 ML 250 ML ONE (05:50)
[2018-06-18] MEDS ORDERED: SODIUM CHLORIDE 0.9% 100 ML ONE (05:53)
[2018-06-18] MEDS: VANCOMYCIN 500MG/NS 0.9% 100ML 100 ML IV SCH ×2 (05:58→12:00)
--- NOTE | 2018-06-18 07:00 | NUR ---
pt extremely agitated, kicking, hitting, slinging head back and forth and screaming w/incomprehensible words. pts at bedside helping to place patient back in bed. Able to get patient back in bed safely. unable to calm pt, will give PRN Ativan for sedation. will continue to monitor
[2018-06-18] MEDS ORDERED: ONDANSETRON HCL INJ 2MG/ML 2ML 2 MG/ML VIAL IV PRN (07:15)
[2018-06-18] MEDS: ZIPRASIDONE 20 MG VIAL IM PRN ×2 (07:24→08:25)
[2018-06-18] MEDS: PANTOPRAZOLE SOD 40 MG TABEC PO SCH (07:30)
[2018-06-18 07:51] LABS: ANISOCYTOSIS SLIGHT; PLATELET ESTIMATE ADEQUATE; PLATELET MORPHOLOGY COMMENT NORMAL
[2018-06-18 07:52] LABS: MICROCYTOSIS SLIGHT
[2018-06-18 08:26] LABS: FREE THYROXINE INDEX 1.7826 (1.4-3.8); THYROID STIMULATING HORMONE 1.212 uIU/mL (0.350-4.940)
[2018-06-18] MEDS ORDERED: DIAZEPAM INJ 5 MG/ML 2 ML IV ONE (09:15)
--- NOTE | 2018-06-18 09:22 | NUR ---
called dr. steven about agitation, he rounds. increases medications - see orders/mar. asks dr. atwood to be notified to see about what meds and plan for pt
[2018-06-18] MEDS ORDERED: ZIPRASIDONE 20 MG VIAL IM PRN (09:30)
[2018-06-18] MEDS: ACYCLOVIR SODIUM 800 MG in SODIUM CHLORIDE 0.9% 250ML 250 ML IV SCH ×2 (10:00→17:37)
[2018-06-18] MEDS ORDERED: LIDOCAINE HCL 1% LOCAL INJ 20 ML VIAL ONE (10:30)
[2018-06-18 10:36] LABS: BLOOD UREA NITROGEN 5 mg/dL (7-26); GLUCOSE 96 mg/dL (74-118); OSMOLALITY,SERUM 265 mOsm/kg (278-305); SODIUM 134 mmol/L (136-145)
[2018-06-18] MEDS ORDERED: FENTANYL CITRATE/PF 100MCG/2 ML INJ ONE (11:01)
[2018-06-18] MEDS ORDERED: FENTANYL CITRATE/PF 100MCG/2 ML INJ IV ONE (11:45)
[2018-06-18] MEDS ORDERED: LIDOCAINE HCL 1% LOCAL INJ 20 ML VIAL INJ ONE (11:45)
[2018-06-18 12:10] LABS: APPEARANCE,CSF CLEAR (CLEAR); COLOR,CSF COLORLESS (COLORLESS); TUBE NUMBER 3
[2018-06-18 12:25] LABS: WHITE BLOOD CELL,CSF 5 cells/uL (0-5)
[2018-06-18 12:51] LABS: TOTAL PROTEIN,CSF 32.9 mg/dL (15-40)
[2018-06-18] MEDS ORDERED: LORAZEPAM INJ 2 MG/ML VIAL ONE (13:00)
[2018-06-18 13:54] LABS: LYMPHOCYTES,CSF 62 % (40-80); MONOCYTES,CSF 11 %; NEUTROPHILS,CSF 27 % (0-6)
--- NOTE | 2018-06-18 14:02 | History and Physical ---
REASON FOR ADMISSION: A 33-year-old comes in with seizure. HISTORY OF PRESENTING ILLNESS: Ms. Louisa Pulido is a 33-year-old female with a history of allergic rhinitis, chronic cough, and feverish at some point of time according to the , was in her usual state of health until three weeks prior to admission she developed these symptoms. The patient continues to have upper respiratory symptoms. Yesterday, the patient felt dehydrated according to the . The patient also had a few drinks prior to this, about 3-4 mixed drinks. The patient has dehydration, got her to drink about six bottles of water, each about 10-12 ounces. The patient then came into the emergency room, had a witnessed seizure and currently the patient is postictal, can be aroused, but goes back to sleep immediately. PAST SURGICAL HISTORY: History of hernia. Hysterectomy for endometriosis. The patient had a history of gastric bypass and also submandibular gland removal. The patient has a chronic history of low back pain too. She has gone for physical therapy for this. MEDICATIONS: She takes vgnn-rip-gqhuues Tylenol Arthritis and Motrin as needed. ALLERGIES: ALLERGIC TO FLAGYL AND FIORICET. SOCIAL HISTORY: Positive for EtOH recently, but no abuse. No smoking history. The patient has no IV drug abuse either. REVIEW OF SYSTEMS: Unable to obtain secondary to the patient's mental status, but according to her no chest pain, no shortness of breath. Positive for allergic symptoms. No nausea, vomiting, or diarrhea. No constipation. No rectal bleeding. No hematochezia. No hematemesis. No diplopia. No blurry vision except with the documented seizure yesterday. FAMILY HISTORY: Noncontributory. PHYSICAL EXAMINATION: GENERAL: The patient is asleep, arousable, but goes right back to sleep. VITAL SIGNS: Temperature is 98.0, pulse of 102, respirations of 22, blood pressure is 91/48, pulse oximetry of 100% on room air. HEENT: Normocephalic, atraumatic. Pupils are reactive. CVS: S1 and S2 regular. LUNGS: Transmitted upper respiratory sounds, otherwise normal. EXTREMITIES: No clubbing, no cyanosis, no edema. NEUROLOGICAL: The patient's reflexes are normal, otherwise unable to examine. IMAGING DATA: The patient's initial imaging studies, chest x-ray shows no definite thoracic abnormalities. Brain CT shows no intracranial abnormalities, all within normal limits. LABORATORY VALUES: Initial sodium was 123, potassium is 3.5, BUN of 11, creatinine of 0.8. AST was 39. Coags were negative. Hematology; white count of 5.42, hemoglobin of 12.1, hematocrit of 34.6. ASSESSMENT: 1. Seizure activity. The patient has been started on Keppra for this and also has been given 2 mg of Ativan. The patient has responded, no more seizures have been seen. 2. Hyponatremia. The patient has been given some sodium chloride. Sodium has come back to 131. 3. Acute mental status changes. The patient is currently on IV antibiotics. Currently, the patient is on Ativan, given a dose of acyclovir and vancomycin in lieu of probable meningitis. The patient also has been given Geodon and is sleeping at this time from the ER. PLAN: Continue monitor the patient in the ICU. We will keep monitoring her mental status and plan to consult Neurology and also Infectious Disease for possible infectious etiology. Continue to monitor the patient. Sodium will be checked tomorrow. Further recommendation and clinical course, we will continue to monitor the patient. MD YONG Espinal/LEORAL /[id number]
--- NOTE | 2018-06-18 15:27 | History and Physical ---
ADDITIONAL DIAGNOSES: Include metabolic encephalopathy. PLAN: Plan is to continue monitoring and also Neurology consult has been done. MD YONG Espinal/LEORAL /[id number]
[2018-06-18 15:59] LABS: HIV 1&2 AB SCREEN NON-REACTIVE (NONREACTIVE)
--- NOTE | 2018-06-18 16:33 | Electroencephalogram ---
DATE OF STUDY: 06/18/2018 REQUESTING PHYSICIAN: Nayely Gallegos MD HISTORY: This 33-year-old woman with a history of new onset seizures is having an EEG for evaluation of epileptiform activity. The patient is taking the following medications which may affect the EEG: Ativan, Keppra. TECHNIQUE: This is a STAT, portable EEG, recorded digitally, using the International 10/20 electrode placement system, and done in the inpatient setting with the patient confused. The EEG is adequate for interpretation. DESCRIPTION: Poorly organized, poorly sustained 3 to 4 hertz activity is best seen symmetrically over the posterior head regions. 13 to 14 hertz activity is intermixed. There are occasional spike slow wave discharges originating from the right frontal region. No electrographic seizures are noted. Sleep is recorded with well- organized spindles and vertex waves. Photic stimulation does produce a driving response. Hyperventilation is not performed. INTERPRETATION: This EEG is abnormal due to the followin. Epileptiform discharges arising from the right frontal region indicating an underlying structural or electrical disturbance in that region. 2. Diffuse slowing of background electrocortical activity compatible with severe generalized encephalopathy. Nayely Gallegos MD CP/MODL /[id number] MTDD
--- NOTE | 2018-06-18 16:38 | Operative Report ---
DATE OF PROCEDURE: 06/18/2018 SURGEON: Nayely Gallegos MD PROCEDURE: Lumbar puncture. TIME: 11:30 a.m. INDICATION: Encephalopathy, new-onset seizure, rule out meningitis. PROCEDURE IN DETAIL: A time-out was completed verifying correct patient, procedure, site, positioning, and special equipment if applicable. The patient was placed in the left lateral decubitus position in a semi- position with help from the nursing staff. The area was cleansed and draped in the usual sterile fashion. 1% lidocaine without epinephrine was used to anesthetize the surrounding skin area. A 20- gauge 6 inch spinal needle was placed in the L4-L5 interspace. Clear cerebral spinal fluid was obtained and the opening pressure was noted to be 21 cm. Four tubes were filled with 6-8 mL of cerebrospinal fluid. These were sent for the usual tests, including one tube to be held for further analysis if necessary. Dr. Gallegos was present for the entire procedure. ESTIMATED BLOOD LOSS: Approximately 2 mL. The patient tolerated the procedure well and there were no complications. Nayely Gallegos MD CP/MODL /[id number] MTDD
--- NOTE | 2018-06-18 16:58 | History and Physical ---
REASON FOR CONSULTATION: Altered mental status. HISTORY OF PRESENT ILLNESS: This patient is a 33-year-old white female. According to her mother, the patient has no past medical history. She was not feeling well yesterday, went to bed, today she was confused, she was brought to the emergency room, she was admitted, she underwent an LP. The patient is currently lying in bed, confused. According to father, there is no fever, no chills. The patient is a 33-year-old, who has history of allergic rhinitis, chronic cough. The patient apparently was not feeling well, they thought it could be dehydrated. She had a witnessed seizure and brought to the emergency room where she was admitted. At this time, she is lethargic. PAST MEDICAL HISTORY: Denies. PAST SURGICAL HISTORY: Hernia, hysterectomy for endometriosis, gastric bypass, submandibular gland removal, chronic history of low back pain. MEDICATIONS: Wxto-pwc-jxeelkj Tylenol. ALLERGIES: FLAGYL. SOCIAL HISTORY: There is no smoking, drug abuse, or alcohol abuse. According to mother, she is not heavy drinker. REVIEW OF SYSTEMS: Could not be obtained. She is currently lethargic. The patient underwent a spinal tap. LABORATORY DATA: Reviewed. White count 6.76, hemoglobin of 10.8. Sodium 131, potassium 4.3 creatinine 0.73. Spinal fluid showed wbc of 5, rbc of 93. PHYSICAL EXAMINATION: GENERAL: She is confused, does not seem to be in acute distress. VITAL SIGNS: Stable. Currently afebrile. HEENT: Normocephalic. Does not appear icteric. NECK: Supple. No JVD. No lymphadenopathy. No thyromegaly. CHEST: Clear bilateral. HEART: S1, S2. No S3, S4, or murmur. ABDOMEN: Soft. Bowel sounds present. No tenderness. No hepatosplenomegaly. EXTREMITIES: No edema. SKIN: There is no rash. NEURO: She is lethargic. IMPRESSION: Seizure. Spinal fluid slightly abnormal, wbc of 5, concerned about encephalitis. There is no fever that has been documented, however. Agree with acyclovir. Agree with spinal fluid for HSV PCR. We will obtain West Nile. Neurology being consulted. Seizure is being addressed. Discussed with the mother, discussed with the nurse. I do not think the patient has acute bacterial meningitis. We will continue with contact isolation. Further recommendations to follow. MD GT Lynn /[id number]
[2018-06-18] MEDS: ENOXAPARIN SOD INJ 40 MG/0.4 ML SYR SC SCH (17:49)
--- NOTE | 2018-06-18 18:14 | Consultation ---
DATE OF CONSULTATION: 06/18/2018 Neurology Consult Note HISTORY OF PRESENT ILLNESS: Ms. Pulido is a 33-year-old right-hand dominant woman admitted to [facility] on June 17, 2018, with encephalopathy and new onset seizure. History is obtained from the patient's , who is at the bedside. On the morning of admission, the patient reportedly told her she felt "dehydrated." This was attributed to the patient drinking 3 beers and 1 glass of wine on the night prior to admission. Over a short period of time (within a few hours), Ms. Pulido consumed approximately 1.5 gallons of water to alleviate her dehydration. Sometime on the afternoon of June 17, 2018, the patient informed her she felt dizzy, nauseous, and had diarrhea. Ms. Pulido's reports the patient appeared pale as well. Concerned about the patient's symptoms, her brought her to the emergency center at [facility] for further evaluation. Upon arrival in the emergency center, the patient was afebrile with a blood pressure of 129/76 mmHg and a pulse of 85 beats per minute. Her neurological examination was significant for altered mental status with the patient being disoriented to person, place, and time. No focal neurological deficits were noted. In the emergency center, CT of the brain without contrast was performed. This study did not reveal evidence of recent large territorial ischemia, hemorrhage, or mass effect. While in the emergency center, the patient reportedly experienced 2 seizures. A description of the seizure activity is not documented. Ms. Pulido was treated with a single dose of intravenous Ativan followed by a loading dose of Keppra. The patient was subsequently transferred to the intensive care unit for further evaluation and treatment of her symptoms. There is no known personal or family history of seizures. The patient's does not report prior head trauma or meningitis/encephalitis. There are no known recent sick contacts. Ms. Pulido has not recently traveled outside of the [place]. Approximately 3 weeks ago, the patient attended a women's retreat. While the patient was not camping during this retreat, there were several activities, which were done out of doors. The patient's does not report any evidence of mosquito bites, bruises, or abrasions upon Ms. Pulido's return from this retreat. To the 's knowledge, there has been no recent sleep deprivation or illness. As stated above, Ms. Pulido did consume multiple alcoholic beverages on the night prior to admission. However, the patient's reports Ms. Pulido commonly consumes a few alcoholic beverages on Tuesday nights. For the remainder of the week, she will have a glass of wine every other day. Ms. Pulido's does not report any known use of prescription or recreational stimulants or the use of benzodiazepines with sudden cessation. For 1 week prior to admission, the patient had complained of a headache as well as photophobia. These symptoms were attributed to environmental changes. The patient's does not report fevers, chills, neck pain or stiffness. REVIEW OF SYSTEMS: Unable to obtain secondary to the patient being encephalopathic. PAST MEDICAL HISTORY: Depression, anxiety disorder, polycystic ovarian syndrome, endometriosis, morbid obesity. PAST SURGICAL HISTORY: Tonsillectomy, bilateral adenoidectomy, Randy-en-Y gastric bypass in 2008, cholecystectomy, oophorectomy, total hysterectomy. PAST HOSPITALIZATIONS: Surgeries/procedures as listed, multiple hospitalizations with dizziness, nausea, vomiting, etc. FAMILY MEDICAL HISTORY: The medical history of Ms. Pulido's father and other paternal relatives is unknown. On her mother's side of the family, there is a strong history of substance abuse and alcoholism in multiple male relatives. SOCIAL HISTORY: Ms. Pulido is . She is a hbdn-kx-soaf parent. There is a remote history of tobacco use. As detailed in the history of present illness, Ms. Pulido drinks 1 glass of wine every other day with the exception of Fridays. On Fridays, she consumes multiple alcoholic beverages. The patient does occasionally smoke marijuana. Last use was 2 weeks ago. HOME MEDICATIONS: No known home medications. HOSPITAL MEDICATIONS: Acyclovir, lorazepam, Zofran, Protonix, phenytoin sodium, vancomycin, Geodon. ALLERGIES: ACETAMINOPHEN, BUTALBITAL, CAFFEINE, FLAGYL. NO KNOWN FOOD ALLERGIES. NO KNOWN ALLERGIES TO LATEX. NO KNOWN ALLERGIES TO IODINE OR OTHER CONTRAST MATERIALS. PHYSICAL EXAMINATION: VITAL SIGNS: Height 65 inches, weight 175 pounds, BMI 29.1 kg/m2, blood pressure 84/60 mmHg, pulse 94 beats per minute, respiratory rate 21 breaths per minute, oxygen saturation 100% on room air. GENERAL: The patient is disoriented and agitated. Overweight. HEENT: Normocephalic, atraumatic. Pupils are equal, round, and reactive to light. Moist mucous membranes. NECK: Supple. No appreciable thyromegaly. No appreciable carotid bruits. CARDIOVASCULAR: S1, S2, tachycardic, regular rhythm. No murmurs, rubs, or gallops. RESPIRATORY: Clear to auscultation bilaterally. No wheezes, rhonchi, or rales. EXTREMITIES: The skin is warm and dry. No clubbing, cyanosis, or edema. The posterior tibial and dorsalis pedis pulses are 2+ and symmetric. SKIN: No rashes or lesions. NEUROLOGIC: Memory/Attention: The patient is disoriented and agitated. She does not answer orientation questions nor does she follow commands. Cranial nerves: Pupils are 4 mm and briskly reactive to 2 mm. Corneal, oculocephalic, and gag reflexes are intact. The face is symmetric as her all facial movements. Hearing is grossly intact to voice. Strength: Bulk is normal. Ms. Pulido moves all extremities spontaneously and symmetrically. Strength is grossly 5/5. Tone is normal. DTRs: Unable to assess secondary to the patient being disoriented and agitated. Sensation: There is withdrawal from peripheral noxious stimulation in all 4 extremities. Cerebellar: Unable to assess secondary to the patient being disoriented and agitated. Gait: Deferred. Speech: Spontaneous speech is limited and mildly dysarthric. Involuntary movements: None. Pronator Drift: As per motor exam. LABORATORY DATA: Most recent sodium is 134. A comprehensive metabolic panel from earlier today reveals an elevated AST of 38 and a low protein of 6.0. Ammonia 65. TSH 1.212, free T4 index 1.7826, thyroxine (T4), 5.55, T3 uptake 32.12. Cardiac enzymes are negative x1. Of note, the patient's serum sodium was 123 upon admission. The CBC with differential and platelets reveals a white blood cell count of 6.76 with 82.3% neutrophils, 10.5% lymphocytes, 4.7% monocytes, 2.1% eosinophils, and 0.1% basophils. The hemoglobin and hematocrit are 10.8 and 33.3, respectively. The platelet count is 169. The coagulation profile is within normal limits. A urinalysis was unremarkable. Urine drug screen was negative x2. Serum salicylate level is less than 5.0. Serum acetaminophen level is 8. Serum ethyl alcohol level is less than 10.0. Cerebrospinal fluid is clear and colorless with 93 red blood cells and 5 white blood cells. Of the white blood cells, 27% are neutrophils, 62% are lymphocytes, and 11 are monocytes. CSF glucose is 67. CSF total protein is 32.9. Blood, urine, CSF cultures, and other CSF studies are pending. DIAGNOSTIC STUDIES: Electrocardiogram, 06/17/2018: Normal sinus rhythm at 79 beats per minute. Chest x-ray, 06/17/2018: Limited by low lung volumes and body habitus. No definite thoracic abnormality. CT of the brain without contrast, 06/17/2018: On my review, there is no evidence of recent or remote large territorial ischemia, hemorrhage, mass, or mass effect. Cerebral volumes are appropriate for age. There are no findings suggestive of chronic small vessel ischemic disease. ASSESSMENT AND PLAN: Ms. Pulido is a 33-year-old right-hand dominant woman admitted to [facility] on June 17, 2018, with headache, dizziness, nausea, diarrhea, and confusion. While in the emergency center, the patient was witnessed to have 2 seizures. Unfortunately, description of the seizure activity is not available. A thorough neurological examination has been performed with findings detailed above. The patient's laboratory data and other diagnostic studies have been reviewed and are documented above. Based on the history, findings on neurological examination, and results of laboratory data and diagnostic studies at present, it appears Ms. Pulido has meningitis. This is the probable cause of her new onset seizures. Other possible causes include hyponatremia or an underlying epileptic disorder. There is a low likelihood the new onset seizures are secondary to substance use/withdrawal. RECOMMENDATIONS: Are as follows: 1. A lumbar puncture was performed. A cell count with differential, protein, glucose, Gram stain with culture, VDRL, West Nile virus, and HSV were ordered. Follow up pending results. 2. A MRI of the brain with and without contrast was ordered. Unfortunately, Ms. Pulido was unable to tolerate the procedure. The study will have to be performed under MAC sedation. 3. A stat EEG was performed and demonstrated epileptiform discharges arising from the right frontal region (please see dictated EEG report for full details). Ms. Pulido will be treated with phenytoin 300 mg intravenously at bedtime daily. Once she is able to take medications by mouth, she will be treated with lamotrigine. 4. Multiple blood and urine studies have been ordered as part of an evaluation for encephalopathy. A urine culture will be added. 5. GI prophylaxis with Protonix. DVT prophylaxis with Lovenox. 6. Defer treatment of the remaining medical comorbidities to the primary and other services following the patient. Thank you for this consultation. I will continue to follow the patient while she remains in the hospital. TIME SPENT: 70 minutes. Nayely Gallegos MD CP/LINA /[id number] MTDD
[2018-06-18] MEDS ORDERED: PHENYTOIN SODIUM INJ 50 MG/ML 2 ML VIAL IV SCH (21:00)
[2018-06-18] MEDS: PHENYTOIN SODIUM IV SCH (22:58)
[2018-06-18] MEDS: SODIUM CHLORIDE 0.9% IV SCH (22:58)
[2018-06-19] VITALS (30 sets, daily range): BP systolic 83–148; BP diastolic 43–82
[2018-06-19] MEDS: ACYCLOVIR SODIUM 800 MG in SODIUM CHLORIDE 0.9% 250ML 250 ML IV SCH ×3 (02:37→18:37)
[2018-06-19 04:59] LABS: BASOPHILS % 0.7 % (0.0-1.0); EOSINOPHILS # (AUTO) 0.1 (0.0-0.4); EOSINOPHILS % 1.1 % (0.0-6.0); HEMATOCRIT 33.6 % (34.2-44.1); HEMOGLOBIN 10.7 g/dL (12.0-16.0); LYMPHOCYTES # (AUTO) 1.4 (1.0-3.2); LYMPHOCYTES % 31.4 % (18.0-39.1); MEAN CORPUSCULAR HEMOGLOBIN 25.1 pg (28-32); MEAN CORPUSCULAR HGB CONC 31.8 g/dL (31-35); MEAN CORPUSCULAR VOLUME 78.9 fL (81-99); MONOCYTES # (AUTO) 0.5 (0.2-0.8); MONOCYTES % 11.2 % (4.4-11.3); NEUTROPHILS # (AUTO) 2.4 (2.1-6.9); NEUTROPHILS % 55.1 % (38.7-80.0); PLATELET COUNT 167 x10e3/uL (140-360); RED BLOOD COUNT 4.26 x10e6/uL (3.6-5.1); RED CELL DISTRIBUTION WIDTH 12.7 % (11.7-14.4)
[2018-06-19 05:20] LABS: ALANINE AMINOTRANSFERASE 23 IU/L (0-55); ALBUMIN 3.4 g/dL (3.5-5.0); ALBUMIN/GLOBULIN RATIO 1.3 (0.8-2.0); ALKALINE PHOSPHATASE 69 IU/L (40-150); AMYLASE 47 U/L (25-125); ANION GAP 11.7 mmol/L (8-16); BLOOD UREA NITROGEN 5 mg/dL (7-26); BUN/CREATININE RATIO 7 (6-25); CALCIUM 8.6 mg/dL (8.4-10.2); CARBON DIOXIDE 24 mmol/L (22-29); CHLORIDE 110 mmol/L (98-107); CREATININE, SERUM 0.76 mg/dL (0.57-1.11); EST GLOMERULAR FILTRATION RATE > 60 ML/MIN (60-); GLUCOSE 74 mg/dL (74-118); MAGNESIUM 2.1 MG/DL (1.3-2.1); POTASSIUM 3.7 mmol/L (3.5-5.1); SODIUM 142 mmol/L (136-145)
[2018-06-19] MEDS: PANTOPRAZOLE SOD 40 MG TABEC PO SCH (07:30)
--- NOTE | 2018-06-19 09:02 | NUR ---
patient is restless where she pulls off ekg leads and pulled out iv
--- NOTE | 2018-06-19 10:36 | NUR ---
PATIENT CONTINUES TO REMOVED EKG LEADS AND BP CUFF
--- NOTE | 2018-06-19 10:49 | NUR ---
RE-APPLIED EKG LEADS AND HR 75 IN SR
[2018-06-19] MEDS ORDERED: GADOBENATE DIMEGLUMINE 1 ML IV ONE (11:43)
[2018-06-19] MEDS ORDERED: SODIUM CHLORIDE 0.9% 500ML 500 ML ONE (11:50)
[2018-06-19] MEDS ORDERED: SODIUM CHLORIDE 0.9% 100 ML 100 ML ONE (12:13)
--- NOTE | 2018-06-19 15:17 | Diagnostic Imaging Report ---
History: AMS, seizure Comparison studies: CT head 06/17/2018 Technique: Pre-contrast: Sagittal T2; axial T1-IR, MPGR, DWI, T2 FLAIR Post-contrast: axial and coronal T1. Intravenous contrast: 50 cc of MultiHance Findings: The study was terminated earlier due to patient noncooperation. Scalp: No abnormal signal. No masses. Bone marrow: Normal in signal intensity. Brain sulci: Appropriate in size. Sulcal FLAIR hyperintensity at the upper convexities, better seen on axial flair. Ventricles: Asymmetric prominence of the right lateral ventricle, normal variant . No hydrocephalus. Extra-axial: No masses, fluid collections or hemorrhage. Parenchyma: No abnormal signal intensities. No masses, hemorrhage, acute or chronic vascular insults. No enhancing abnormalities. Suprasellar region: No abnormalities. Craniocervical junction: No abnormalities. Patent foramen magnum. No Chiari one malformation.. Vessels: Normal flow-voids in the arteries and sinuses. Incidental findings: None IMPRESSION: 1. Sulcal FLAIR hyperintensity at the cerebral convexities, most likely related to oxygen administration . 2. No other abnormality Signed by: DR Kevin Santoro M.D. on 06/19/2018 3:14 PM
--- NOTE | 2018-06-19 16:39 | NUR ---
bladder scanned and resulted 320 ml x2. patient agreed to sit on potty and try to urinate. total urine output was 300 ml
--- NOTE | 2018-06-19 17:29 | NUR ---
patient removed EKG leads and pulse ox after i taped them on her.
[2018-06-19] MEDS ORDERED: WATER STERILE 10 ML VIAL INJ PRN (17:30)
[2018-06-19] MEDS ORDERED: PROPOFOL IV EMULSION 10 MG/ML 20 ML VIAL ONE (17:53)
[2018-06-19] MEDS ORDERED: FENTANYL CITRATE/PF 100MCG/2 ML INJ ONE (18:06)
[2018-06-19] MEDS ORDERED: MIDAZOLAM HCL 2 MG/2 ML VIAL ONE (18:06)
[2018-06-19] MEDS: ENOXAPARIN SOD INJ 40 MG/0.4 ML SYR SC SCH (18:37)
[2018-06-19] MEDS ORDERED: PHENYTOIN SODIUM INJ 50 MG/ML 2 ML VIAL ONE (20:57)
[2018-06-19] MEDS: PHENYTOIN SODIUM IV SCH (21:45)
[2018-06-19] MEDS: SODIUM CHLORIDE 0.9% IV SCH (21:45)
--- NOTE | 2018-06-19 23:00 | Progress Note ---
DATE: SUBJECTIVE: The patient is in ICU 192. The patient is here for acute mental status changes. The patient was found to have viral meningitis and also history of suggestive of seizure on EEG. Currently, the patient is still nontalkative, voices answers on repetitive questioning, otherwise feeling better and according to family, the patient is improved critically from yesterday. CURRENT MEDICATIONS: Include acyclovir. She is on Lovenox, lorazepam, pantoprazole, and she is on Dilantin and Geodon as needed. OBJECTIVE: VITAL SIGNS: Temperature is 98.9, pulse of 85, respirations of 14, blood pressure is 134/82, and pulse oximetry of 99% on room air. HEENT: Normocephalic, atraumatic. Pupils are reactive. CARDIOVASCULAR SYSTEM: S1, S2. Regular. ABDOMEN: Nontender, nondistended. EXTREMITIES: No clubbing, no cyanosis, trace edema present. LABORATORY VALUES: Initial today's white count is 4.36, hemoglobin of 10.7, hematocrit of 33.6, neutrophil count 55.1. Chemistry; sodium of 142, potassium was 3.7, BUN 5, creatinine 0.76 with EGFR of 60. The patient's toxicology screen was all negative and CSF showed 5 WBCs. Microbiology pending no growth in the blood cultures preliminary and CSF cultures are so far negative preliminary. IMAGING: Studies brain MRI did show FLAIR hyperintensities at the cerebral convexities. No other abnormality. EEG did show epileptiform waveforms. ASSESSMENT: 1. Viral meningitis. The patient is currently on acyclovir. We will continue with this. Rocephin has been stopped. The patient is on DVT prophylaxis. 2. EEG with seizures. Plan is to continue with medication, on phenytoin. 3. Encephalopathy secondary to viral meningitis. Continue monitoring the patient. Further recommendation and clinical course. We will continue with monitoring the patient today and the patient is needed and antiemetics on board if needed. We will keep the patient in ICU. ID and Neurology consult. MD YONG Espinal/LEORAL /[id number]
[2018-06-20] VITALS (13 sets, daily range): BP systolic 92–126; BP diastolic 46–82
[2018-06-20] MEDS: ACYCLOVIR SODIUM 800 MG in SODIUM CHLORIDE 0.9% 250ML 250 ML IV SCH ×3 (03:22→18:31)
[2018-06-20] MEDS: PANTOPRAZOLE SOD 40 MG TABEC PO SCH (07:56)
--- NOTE | 2018-06-20 09:00 | NUR ---
DISCONTINUED TELEMETRY. PATIENT TOLERATING CLEAR LIQUIDS. ADVANCED DIET.
--- NOTE | 2018-06-20 10:19 | NUR ---
PATIENT TOLERATED AMBULATING TO BATHROOM. BM AND VOID. ORAL CARE AND WASHED UP. NO SOB.
[2018-06-20] MEDS: ENOXAPARIN SOD INJ 40 MG/0.4 ML SYR SC SCH (17:19)
[2018-06-20] MEDS: LAMOTRIGINE 100 MG TAB PO SCH (17:19)
--- NOTE | 2018-06-20 19:24 | NUR ---
Received patient from day nurse, patient is alert and oriented x 3. patient is on room air, patient denies any pain at this time, safety and fall precautions maintained at this time: bed in lowest position and locked, needed items beside bed, call ruiz close to patient and patient encouraged to use it to call nurses for assistance needed. patient is currently stable will continue to monitor.
--- NOTE | 2018-06-20 19:54 | NUR ---
patient down graded and being sent to med surg 213, family called and made aware.
[2018-06-20] MEDS: LORAZEPAM INJ 2 MG/ML VIAL IV PRN (23:21)
[2018-06-21] VITALS (7 sets, daily range): BP systolic 92–118; BP diastolic 52–67
[2018-06-21] MEDS ORDERED: SODIUM CHLORIDE 0.9% 250ML 250 ML ONE (01:47)
[2018-06-21] MEDS: ACYCLOVIR SODIUM 800 MG in SODIUM CHLORIDE 0.9% 250ML 250 ML IV SCH ×3 (01:47→18:23)
[2018-06-21] MEDS: PANTOPRAZOLE SOD 40 MG TABEC PO SCH (08:31)
[2018-06-21] MEDS: ACETAMINOPHEN 325 MG TAB PO PRN ×2 (08:32→14:13)
[2018-06-21] MEDS: LAMOTRIGINE 100 MG TAB PO SCH ×2 (08:32→15:54)
--- NOTE | 2018-06-21 08:42 | Progress Note ---
DATE: SUBJECTIVE: The patient admitted for acute encephalopathy and seizure disorder. The patient is currently waking up. She is alert and oriented x3. More talkative than yesterday. Cognitive function has improved quite a bit. MEDICATIONS: She is on acetaminophen, acyclovir, enoxaparin, lamotrigine, lorazepam, pantoprazole and Geodon as needed. PHYSICAL EXAMINATION: VITAL SIGNS: Temperature 96.8, pulse of 87, respirations of 18, blood pressure is 100/67, and pulse oximetry of 99%. HEENT: Normocephalic and atraumatic. Pupils are reactive to light and accommodation. CVS: S1 and S2 normal. Regular rate and rhythm. ABDOMEN: Nontender and nondistended. EXTREMITIES: No clubbing, no cyanosis, no edema. NEUROLOGICAL: More alert and oriented x3. No sensory motor deficits noted. LABORATORY VALUES: None done today. Chemistries are also normal. Toxicology normal. CSF is pending. Otherwise, neutrophil count is with white count of 5. Microbiology; urine cultures negative. CSF cultures, preliminary was no growth for 2 days and blood cultures have been no growth for 2 days. ASSESSMENT: 1. 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 Continue with acyclovir at this time. 2. The patient with seizure disorder. Lamotrigine has been started in lieu of her mood disorder. 3. History of headaches. We will continue to monitor the patient. Further recommendation per clinical course. Neurology and ID are following the patient. DISPOSITION: Possible discharge in 1 to 2 days depending on neurological progression. MD YONG Espinal/LEORAL /[id number]
[2018-06-21] MEDS ORDERED: KETOROLAC TROMETHAMINE 30 MG/ML VIAL IV PRN (10:30)
--- NOTE | 2018-06-21 15:30 | NUR ---
aware of patient's headaches. See orders
[2018-06-21] MEDS: ENOXAPARIN SOD INJ 40 MG/0.4 ML SYR SC SCH (15:54)
[2018-06-21] MEDS: TRAMADOL HCL 50 MG TAB PO PRN ×2 (15:54→21:33)
--- NOTE | 2018-06-21 19:10 | NUR ---
Report given to oncoming nurse of patient's status. Resting in bed. No s/s of acute distress noted. Family members at bedside.
--- NOTE | 2018-06-21 19:47 | NUR ---
Received change of shift report from AM nurse. Walking rounds completed.
[2018-06-21] MEDS: LORAZEPAM INJ 2 MG/ML VIAL IV PRN (21:45)
[2018-06-22] VITALS (7 sets, daily range): BP systolic 103–120; BP diastolic 56–81
[2018-06-22] MEDS: ACYCLOVIR SODIUM 800 MG in SODIUM CHLORIDE 0.9% 250ML 250 ML IV SCH ×3 (02:00→18:17)
[2018-06-22 05:51] LABS: EOSINOPHILS # (AUTO) 0.2 (0.0-0.4); EOSINOPHILS % 7.5 % (0.0-6.0); HEMATOCRIT 33.4 % (34.2-44.1); HEMOGLOBIN 10.5 g/dL (12.0-16.0); LYMPHOCYTES # (AUTO) 0.8 (1.0-3.2); MEAN CORPUSCULAR HEMOGLOBIN 25.1 pg (28-32); MEAN CORPUSCULAR HGB CONC 31.4 g/dL (31-35); MEAN CORPUSCULAR VOLUME 79.7 fL (81-99); MONOCYTES # (AUTO) 0.2 (0.2-0.8); MONOCYTES % 7.5 % (4.4-11.3); NEUTROPHILS # (AUTO) 1.6 (2.1-6.9); PLATELET COUNT 167 x10e3/uL (140-360); RED BLOOD COUNT 4.19 x10e6/uL (3.6-5.1)
[2018-06-22 06:16] LABS: ANION GAP 8.6 mmol/L (8-16); BLOOD UREA NITROGEN 7 mg/dL (7-26); BUN/CREATININE RATIO 10 (6-25); CALCIUM 8.7 mg/dL (8.4-10.2); CARBON DIOXIDE 25 mmol/L (22-29); CHLORIDE 108 mmol/L (98-107); CREATININE, SERUM 0.73 mg/dL (0.57-1.11); EST GLOMERULAR FILTRATION RATE > 60 ML/MIN (60-); GLUCOSE 87 mg/dL (74-118); POTASSIUM 3.6 mmol/L (3.5-5.1); SODIUM 138 mmol/L (136-145)
--- NOTE | 2018-06-22 07:05 | NUR ---
Received patient mid fowlers position, side rails upx2, call light within reach. AAOX4 to time, person, place, situation. Respirations even and unlabored. Instructed patient to use call light for assistance. Will continue to monitor.
[2018-06-22] MEDS: PANTOPRAZOLE SOD 40 MG TABEC PO SCH (07:37)
[2018-06-22] MEDS: LAMOTRIGINE 100 MG TAB PO SCH ×2 (07:38→16:51)
[2018-06-22] MEDS: TRAMADOL HCL 50 MG TAB PO PRN ×2 (07:38→16:51)
--- NOTE | 2018-06-22 07:43 | Progress Note ---
DATE: SUBJECTIVE: This is a patient who came in with encephalopathy, hyponatremia, new onset seizures. The patient is currently on acetaminophen, acyclovir, Lovenox, Ketoralac, lamotrigine, lorazepam as needed, and pantoprazole and tramadol as needed. Currently, the patient is asymptomatic. No complaints. No chest pains. No shortness of breath. No nausea, vomiting, or diarrhea. More coherent and cognition is improved quite a bit. OBJECTIVE: VITAL SIGNS: Temperature is 97.5, pulse of 88, respirations of 18, blood pressure is 114/66. HEENT: Normocephalic, atraumatic. Pupils are reactive to light and accommodation. CVS: S1, S2 normal. Regular rate and rhythm. ABDOMEN: Nontender, nondistended. EXTREMITIES: No clubbing. Trace edema. NEUROLOGIC: Cognitive, alert and oriented x3. No focal motor deficits noted. LABORATORY VALUES: White count with a drastic reduction to 2.81 from 5.42, hemoglobin of 10.5, hematocrit of 33.4, neutrophil count no left shift present. ASSESSMENT: 1. Encephalopathy secondary to possible viral meningitis. 2. Seizure activity. Continue with Lamictal. 3. New onset of leukopenia. The plan is to watch the patient overnight. Check the trend in white count. If it decreases further possibly induced medication, might have to remove inciting medication. Further recommendation per clinical course. DISPOSITION: Possible discharge tomorrow depending on the white count. MD DIANA EspinalJ/MODL /[id number]
[2018-06-22] MEDS ORDERED: SODIUM CHLORIDE 0.9% 250ML 250 ML ONE (09:20)
[2018-06-22] MEDS: ENOXAPARIN SOD INJ 40 MG/0.4 ML SYR SC SCH (16:51)
--- NOTE | 2018-06-22 19:03 | NUR ---
Report given to oncoming nurse of patient's status. Family at bedside. No s/s of acute distress noted.
--- NOTE | 2018-06-22 20:00 | NUR ---
pt received. pt assessed. no ss of distress noted. no co pain at time. will cont to follow poc. call ruiz within reach.
[2018-06-22] MEDS: LORAZEPAM INJ 2 MG/ML VIAL IV PRN (20:27)
[2018-06-22 22:54] LABS: OSMOLALITY,SERUM OSMOMETER 268 mOsmol/kg (275-295)
[2018-06-23] VITALS: BP 111/67
--- NOTE | 2018-06-23 01:30 | NUR ---
pt co itching. pt stated she thought she is having reaction to acyclovir. lotion provided at time. dr clark paged at time. awaiting return phone call.
[2018-06-23] MEDS: ACYCLOVIR SODIUM 800 MG in SODIUM CHLORIDE 0.9% 250ML 250 ML IV SCH (02:00)
--- NOTE | 2018-06-23 02:23 | NUR ---
no return phone call from dr clark. spoke to dr steven regarding pt co itching. new orders received.
[2018-06-23] MEDS ORDERED: DIPHENHYDRAMINE HCL 25 MG CAP PO ONE (02:30)
[2018-06-23 04:00] VITALS: BP 100/59
--- NOTE | 2018-06-23 04:23 | NUR ---
pt resting. no ss of distress noted. call ruiz within reach.
[2018-06-23 05:23] LABS: BASOPHILS % 0.2 % (0.0-1.0); HEMATOCRIT 27.1 % (34.2-44.1); HEMOGLOBIN 8.4 g/dL (12.0-16.0); LYMPHOCYTES # (AUTO) 0.8 (1.0-3.2); LYMPHOCYTES % 5.2 % (18.0-39.1); MEAN CORPUSCULAR HEMOGLOBIN 26.3 pg (28-32); MONOCYTES # (AUTO) 0.5 (0.2-0.8); NEUTROPHILS # (AUTO) 12.8 (2.1-6.9); NEUTROPHILS % 86.1 % (38.7-80.0); PLATELET COUNT 188 x10e3/uL (140-360); RED BLOOD COUNT 3.19 x10e6/uL (3.6-5.1); RED CELL DISTRIBUTION WIDTH 14.4 % (11.7-14.4)
--- NOTE | 2018-06-23 06:10 | NUR ---
spoke to laboratory in regards to am labs. medical laboratory technicians to come redraw.
--- NOTE | 2018-06-23 06:25 | NUR ---
spoke to dr steven in regards to lab results. new orders received.
[2018-06-23 06:31] LABS: BASOPHILS % 0.3 % (0.0-1.0); EOSINOPHILS # (AUTO) 0.2 (0.0-0.4); EOSINOPHILS % 6.9 % (0.0-6.0); HEMATOCRIT 31.4 % (34.2-44.1); HEMOGLOBIN 9.9 g/dL (12.0-16.0); LYMPHOCYTES # (AUTO) 1.2 (1.0-3.2); LYMPHOCYTES % 40.1 % (18.0-39.1); MEAN CORPUSCULAR HGB CONC 31.5 g/dL (31-35); MEAN CORPUSCULAR VOLUME 79.3 fL (81-99); MONOCYTES # (AUTO) 0.2 (0.2-0.8); NEUTROPHILS # (AUTO) 1.3 (2.1-6.9); NEUTROPHILS % 44.4 % (38.7-80.0); PLATELET COUNT 176 x10e3/uL (140-360); RED BLOOD COUNT 3.96 x10e6/uL (3.6-5.1); RED CELL DISTRIBUTION WIDTH 13.1 % (11.7-14.4)
[2018-06-23 06:50] LABS: ANION GAP 10.7 mmol/L (8-16); BLOOD UREA NITROGEN 6 mg/dL (7-26); BUN/CREATININE RATIO 9 (6-25); CALCIUM 8.6 mg/dL (8.4-10.2); CARBON DIOXIDE 25 mmol/L (22-29); CHLORIDE 108 mmol/L (98-107); CREATININE, SERUM 0.67 mg/dL (0.57-1.11); EST GLOMERULAR FILTRATION RATE > 60 ML/MIN (60-); GLUCOSE 84 mg/dL (74-118); POTASSIUM 3.7 mmol/L (3.5-5.1); SODIUM 140 mmol/L (136-145)
--- NOTE | 2018-06-23 07:17 | NUR ---
spoke to dr steven in regards to most current lab results. no new orders at time. oncoming nurse made aware.
[2018-06-23] MEDS: PANTOPRAZOLE SOD 40 MG TABEC PO SCH (07:30)
[2018-06-23 08:00] VITALS: BP 113/73
[2018-06-23] MEDS: LAMOTRIGINE 100 MG TAB PO SCH (09:00)
[2018-06-23 09:18] VITALS: BP 100/59
--- NOTE | 2018-06-23 09:30 | NUR ---
PT REQUESTED TO GO HOME PAGED AND TALKED DR PAEZ HE SAID IF OK WITH DR RIOJAS SO PAGED TO DR RIOJAS
[2018-06-23] MEDS ORDERED: FAMCICLOVIR500 MG PO (10:15)
[2018-06-23] MEDS ORDERED: LAMICTAL100 MG PO (10:16)
--- NOTE | 2018-06-23 10:33 | NUR ---
PT WENT HOME IN SAFE CONDITION WITH HER
== END 2018-06-23 10:33 | disposition home or self-care (01) | DRG 100 ==
LOC: ER 18:36 → ERHOLD 23:44 → ICU 06-18 01:20 → MED/SURG2 06-20 20:11
PROVIDERS: ADMIT Family Medicine; ATTEND Family Medicine
PROC: 009 Central Nervous System and Cranial Nerves, Drainage (ICD-10-PCS; principal; 2018-06-18)
DX: R56.9 Unspecified convulsions (principal); G93.41 Metabolic encephalopathy; R87.1 Abnormal level of hormones in specimens from female genital organs
CPT/HCPCS: 36415; 70450; 70553; 71045; 80048; 80053; 80185; 80307; 80320; 80329; 81001; 82140; 82150; 82550; 82553; 82607; 82945; 82947; 83735; 83930; 83935; 84157; 84295; 84300; 84425; 84436; 84443; 84479; 84484; 84520; 85025; 85610; 85730; 86592; 86789; 87040; 87070; 87086; 87205; 87252; 87390; 87536; 89051; 93005; 95812; 96374; 96375; 99284; G0433; G0435; J0696; J1165; J1650; J1885; J2001; J2060; J2250; J3360; J3370; J3486; J7030; J7040; J7050